=== PATIENT | male | born 1945 | race Caucasian/White ===

== ENCOUNTER → 2018-01-15 | Outpatient (CLI) | payer OTHER | LOC: FIMAGING 09:45 | PROVIDERS: ATTEND Orthopaedic Surgery | DX: M17.11 Unilateral primary osteoarthritis, right knee (principal) ==

== ENCOUNTER 2018-02-04 10:10 | Inpatient (IN) | payer OTHER ==
--- NOTE | 2018-02-04 06:21 | PDHPUP ---
History & Physical Update H&P update statement: This history and physical update is based on an assessment of the patient which was completed after admission or registration (within 24 hours), but prior to the surgery/procedure. H&P update: H&P reviewed & patient examined, no change in patient's condition since H&P completed
[~2018-02-04 10:10] MED LIST: MIDAZOLAM 2 MG/2 ML VIAL IVP ONE; ROPIVACAINE 0.2% 80 MG, EPINEPHrine 0.2 MG, KETOROLAC TROMETHAMINE 30 MG in SYRINGE 0 ML IU ONE; TRANEXAMIC ACID 3,000 MG in NS (SYRINGE) 50 ML IRR ONE; TRANEXAMIC ACID 3,000 MG/50 ML BAG IRR ONE
[2018-02-04] MEDS ORDERED: FAMOTIDINE 20 MG TAB PO ONE (10:37)
[2018-02-04] MEDS ORDERED: ACETAMINOPHEN 325 MG TAB PO ONE (10:37)
[2018-02-04] MEDS ORDERED: DEXAMETHASONE 4 MG/ML VIAL IVP ONE (10:37)
[2018-02-04] MEDS ORDERED: ceFAZolin 2 GM/DEXTROSE 100 ML IV ONE (10:37)
[2018-02-04] MEDS ORDERED: LR 1,000 ML IV ONE (10:39)
[2018-02-04] MEDS ORDERED: MIDAZOLAM 2 MG/2 ML VIAL IVP ONE (11:58)
--- NOTE | 2018-02-04 12:00 | PDANEPAE ---
ANE History of Present Illness djd knee s/f R TKA ANE Past Medical History - Cardiovascular History Hx Hypertension: No Hx Arrhythmias: No Hx Chest Pain: No Hx Coronary Artery / Peripheral Vascular Disease: No Hx CHF / Valvular Disease: No Hx Palpitations: No Cardiovascular History Comment: high chol - Pulmonary History Hx COPD: No Hx Asthma/Reactive Airway Disease: No Hx Recent Upper Respiratory Infection: No Hx Oxygen in Use at Home: No Hx Sleep Apnea: No Sleep Apnea Screening Result - Last Documented: Negative - Neurologic History Hx Cerebrovascular Accident: No Hx Seizures: No Hx Dementia: No - Endocrine History Hx Diabetes: No Endocrine History Comment: hx of hyperthyroid- used medications and hasn't had any difficulties in 5-6 years - Renal History Hx Renal Disorders: No - Liver History Hx Hepatic Disorders: No - Neurological & Psychiatric Hx Hx Neurological and Psychiatric Disorders: No - Cancer History Hx Cancer: No - Congenital Disorder History Hx Congenital Disorders: No - GI History Hx Gastrointestinal Disorders: Yes Gastrointestinal History Comment: hx of acid reflux- no issues currently - Other Health History Other Health History: wears reading glasses. wears bilateral hearing aides. 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 cataract surgery- bilaterally. lymph nodes removed ANE Review of Systems Review of Systems: - Exercise capacity METS (RN): 4 METS ANE Patient History - Allergies Allergies/Adverse Reactions: No Known Allergies Allergy (Verified 01/09/18 16:14) - Home Medications Home medications: home medication list seen and reviewed Home Medications: Aspirin [Aspirin 81mg (*)] 81 mg PO DAILY 01/09/18 [Last Taken 1 Week Ago ~01/28] Cholecalciferol Vit D3 [Vitamin D3 (*)] 1,000 units PO DAILY 01/09/18 [Last Taken 2 Weeks Ago ~01/21/18] Fluticasone Nasal [Flonase Nasal [place] (RX)] 2 sprays NASAL DAILY 01/09/18 [ Last Taken 01/25/18] Ibuprofen [Motrin (*)] 200 mg PO DAILY PRN 01/09/18 [Last Taken 1 Week Ago ~] Ketoconazole 2% [Nizoral 2% Cream (*)] 1 ying TP BID 01/09/18 [Last Taken ] [place]-3 Fatty Acids [Fish Oil 1000 mg (*)] 1,000 mg PO DAILY 01/09/18 [Last Taken 2 Weeks Ago ~01/21/18] Simvastatin [Zocor] 20 mg PO DAILY18 01/09/18 [Last Taken 02/03/18] Triamcinolone 0.5% [Triamcinolone 0.5% Cream (*)] 1 ying TP Q3D 01/09/18 [Last Taken 2 Weeks Ago ~01/21/18] - NPO status NPO Status: no food or drink >8 hours NPO Since - Liquids (Date): 02/04/18 NPO Since - Liquids (Time): 08:45 NPO Since - Solids (Date): 02/03/18 NPO Since - Solids (Time): 17:30 - Smoking Hx Smoking Status: Never smoked - Alcohol Use Alcohol Use: Occasionally - Family Anes Hx Family Hx Anesthesia Complications: none ANE Labs/Vital Signs - Vital Signs Blood Pressure: 151/68 Heart Rate: 64 Respiratory Rate: 18 O2 Sat (%): 97 Height: 175.26 cm Weight: 87.09 kg ANE Physical Exam - Airway Neck exam: FROM Mallampati Score: Class 2 Mouth exam: normal dental/mouth exam - Pulmonary Pulmonary: no respiratory distress - Cardiovascular Cardiovascular: regular rate and rhythym - ASA Status ASA Status: II ANE Anesthesia Plan Anesthesia Plan: MAC, spinal (spinal with sedation) Regional Anesthesia: adductor canal FNB
[2018-02-04] MEDS ORDERED: PROPOFOL/EMULSION 500 MG/50 ML BOTTLE IV ONE (12:10)
[2018-02-04] MEDS ORDERED: fentaNYL 100 MCG/2 ML INJ ONE (12:10)
[2018-02-04] MEDS ORDERED: METOCLOPRAMIDE 10 MG/2 ML VIAL IVP PRN (12:46)
[2018-02-04] MEDS ORDERED: TEMAZEPAM 15 MG CAP PO PRN (12:46)
[2018-02-04] MEDS ORDERED: MAGNESIUM HYDROXIDE 30 ML UDCUP PO PRN (12:46)
[2018-02-04] MEDS ORDERED: POLYETHYLENE GLYCOL 3350 17 GM PKT PO PRN (12:46)
[2018-02-04] MEDS ORDERED: BISACODYL 10 MG SUPP PR PRN (12:46)
[2018-02-04] MEDS ORDERED: LACTULOSE 20 GM/30 ML UDCUP PO PRN (12:46)
[2018-02-04] MEDS ORDERED: DIPHENOXYLATE/ATROPINE LOMOTIL 1 TAB PO PRN (12:46)
[2018-02-04] MEDS ORDERED: ONDANSETRON 4 MG/2 ML VIAL IVP PRN (12:46)
[2018-02-04] MEDS ORDERED: PROMETHAZINE HCL 25 MG SUPPR PR PRN (12:46)
[2018-02-04] MEDS ORDERED: PROMETHAZINE HCL 25 MG/ML INJ IVP PRN (12:46)
[2018-02-04] MEDS ORDERED: CYCLOBENZAPRINE 10 MG TAB PO PRN (12:46)
[2018-02-04] MEDS ORDERED: ONDANSETRON DISINTEGRATING 4 MG TAB PO PRN (12:46)
[2018-02-04] MEDS ORDERED: diphenhydrAMINE 25 MG CAP PO PRN (12:46)
[2018-02-04] MEDS ORDERED: LR 1,000 ML IV SCH (13:00)
[2018-02-04] MEDS ORDERED: PROPOFOL 200 MG/20 ML VIAL ONE (13:07)
--- NOTE | 2018-02-04 13:32 | PDMN ---
Medical Necessity Medical necessity: Pt meets IP criteria as of 02/04/2018 per PA for R KATINA; est los > 2 mn due to advanced age and pain control.
--- NOTE | 2018-02-04 13:50 | POSTOPPROG ---
Post Op Note Date of Operation: 02/04/18 Surgeon: Caden Dee Field Project Manager: jak dee PA-C Anesthesiologist: dr. hernández Anesthesia: Spinal, Other (Specify) (adductor canal block) Pre-op Diagnosis: right knee OA Post-op Diagnosis: same Indication: right knee pain Procedure: R TKA robot assisted Findings: severe knee OA Inf/Abcess present in the surg proc area at time of surgery?: No EBL: 50-100
[2018-02-04] MEDS: ACETAMINOPHEN 325 MG TAB PO SCH ×2 (17:31→23:43)
[2018-02-04] MEDS: oxyCODONE IR 5 MG TAB PO PRN (17:33)
[2018-02-04] MEDS ORDERED: ATORVASTATIN CALCIUM 10 MG TAB PO SCH (18:00)
[2018-02-04] MEDS: ceFAZolin 2 GM/DEXTROSE 100 ML IV SCH (20:01)
[2018-02-04] MEDS: ASPIRIN 81 MG CHEWABLE TAB PO SCH (21:07)
[2018-02-04] MEDS: FAMOTIDINE 20 MG TAB PO SCH (21:07)
[2018-02-04] MEDS: SENNOSIDES/DOCUSATE SODIUM TAB PO SCH (21:07)
[2018-02-05] MEDS: ceFAZolin 2 GM/DEXTROSE 100 ML IV SCH (04:46)
[2018-02-05] MEDS: ACETAMINOPHEN 325 MG TAB PO SCH (05:02)
[2018-02-05] MEDS: oxyCODONE IR 5 MG TAB PO PRN (08:12)
[2018-02-05] MEDS: ASPIRIN 81 MG CHEWABLE TAB PO SCH (08:13)
[2018-02-05] MEDS: SENNOSIDES/DOCUSATE SODIUM TAB PO SCH (08:13)
[2018-02-05] MEDS: FAMOTIDINE 20 MG TAB PO SCH (08:13)
--- NOTE | 2018-02-05 08:21 | GOP ---
DATE OF OPERATION: 02/04/2018 SURGEON: Gisselle Hernadez MD REHABILITATION SERVICES MANAGER: SHREYAS Acevedo. ANESTHESIA: Spinal. PREOPERATIVE DIAGNOSIS: Right knee osteoarthritis. POSTOPERATIVE DIAGNOSIS: Right knee osteoarthritis. PROCEDURE PERFORMED: Right total knee arthroplasty with computer navigation, robotic assist. FINDINGS: ESTIMATED BLOOD LOSS: 30 cc. INDICATIONS: The patient is a 72-year-old male with severe and progressive pain and deformity of the right knee unresponsive to conservative care. The risks and benefits of surgical intervention were explained in detail. DESCRIPTION OF PROCEDURE: The patient was brought to the operative room and placed on the table in t he supine position. Spinal anesthesia was induced without difficulty. A pneumatic tourniquet was appl ied about the right proximal thigh, and the leg was prepped and draped in a sterile fashion. The leg elizabeth was applied. After exsanguination by elevation the tourniquet was inflated to 250 mmHg. Incision was made anterior medial from the tibial tuberosity to a point 2 cm proximal to the superior pole of the patella. Medial parapatellar arthrotomy was carried out from the superior pole of the pa tella and posteriorly in line with the fibers of the Type II VMO. The medial collateral ligament was elevated and the infrapatellar fat pad was resected. The patella was everted and the articular surface was excised. A 35 mm patellar button was placed. Attention was turned first to the distal aspect of the femur. After exposure of the femur, 2 half pi ns were placed for fixation of the femoral array. In a similar fashion, 2 pins were placed anteromed ial on the tibia for fixation of the tibial array. External land marking and registration of the hip center was performed without difficulty. Internal femoral and tibial registration was carried out w ithout difficulty and the femoral and tibial checkpoints were placed and verified for accuracy. Attention was turned to the femur. The foot print for the size 5 femoral component was cut with the saw using the [employer] robotic system and verified for accuracy against the CT based plan. In a similar f ashion, the saw was used to cut the footprint for the size 6 tibial component using the [employer] system an d verified for accuracy against the CT based plan. The tibial articular surface was excised without d ifficulty, followed by the intercondylar box cut. The knee was extended and the remnants of the medial and lateral meniscus were excised. The posterior capsule was injected with ropivacaine, epinephrine and Toradol. A size 6 tibial tray was positioned . Trial reduction was then carried out. There was excellent range of motion, alignment, and stability using the 6 x 9 mm polyethylene. All trials were then removed. The joint was thoroughly irrigated and carefully dried. The press-fit c omponents were implanted. The permanent 6 x 9 mm polyethylene was placed without difficulty. The tourniquet was deflated and all bleeders were coagulated. The wound was thoroughly irrigated and closed using interrupted sutures of 2-0 Vicryl for the joint capsule. The subcu was closed with 3-0 V icryl and the skin with 4-0 Monocryl. Dermabond and Steri-Strips were applied followed by a compress albertina dressing. The patient was then moved from the operating room to the recovery room in good conditi on, having tolerated the procedure well. PATHOLOGY: Severe medial patellofemoral osteoarthritis. /[id number]/MODL
[2018-02-05 08:26] VITALS: BP 146/88
[2018-02-05] MEDS ORDERED: KETOCONAZOLE 2% 15 GM CREAM TP SCH (09:00)
[2018-02-05] MEDS ORDERED: FLUTICASONE NASAL 120 SPRAYS/16 GM MDI NS SCH (09:00)
--- NOTE | 2018-02-05 09:58 | ASMTLACE ---
LACE Length of stay for Answers: Less than 1 day current admission Acuity / Level of Answers: Yes Care: Did the patient have an inpatient admission? Comorbidities - select Answers: Opioid dependence all that apply / Chronic pain # of Emergency department Answers: 0 visits in the last 6 months Score: 7 Date Signed: 02/05/2018 09:57 AM Electronically Signed By:Dasia Villanueva RN
--- NOTE | 2018-02-05 10:01 | ASMTDCNOTE ---
Case Management Discharge Discharge Order Complete? Answers: Yes Discharge Comments Notes: 02/05/2018 Case Management Note There are no identified case management d/c needs. Pt to discharge home with follow up as directed. Date Signed: 02/05/2018 10:00 AM Electronically Signed By:Dasia Villanueva RN
--- NOTE | 2018-02-05 11:16 | SOAPPROG ---
SOAP Progress Note Assessment/Plan: Assessment: Patient is doing well POD 1 s/p R TKA Pain management: pain is well controlled on oral pain meds. VTE ppx: recommend aspirin 81 mg BID for 4 weeks, cont CAMILLE and SCDs D/c planning: Patient has done better than anticipated. Pain has been minimal and patient has tolerated narcotic pain meds well. Patient would prefer to go home today. Ok for discharge to home if patient is released from PT Plan: 02/05/18 11:15 Subjective: patient is doing well today, denies SOB, chest pain and N/V Objective: Vital Signs Temp Pulse Resp BP Pulse Ox 36.3 C 95 13 146/88 H 95 02/05/18 08:00 02/05/18 08:00 02/05/18 08:00 02/05/18 08:00 02/05/18 08:00 Laboratory Results 02/05/18 05:08 02/04/18 02/05/18 02/06/18 05:59 05:59 05:59 Intake Total 3550 400 Output Total 1210 300 Balance 2340 100 RLE: incision dressing is clean and dry, NVI, +pf/df ICD10 Worksheet Patient Problems: Problems Problem Status Onset Primary localized osteoarthritis of right knee Acute
== END 2018-02-05 10:24 | disposition home or self-care (01) | DRG 470 ==
LOC: F3N 10:10
PROVIDERS: ADMIT Orthopaedic Surgery; ATTEND Orthopaedic Surgery
DX: M17.11 Unilateral primary osteoarthritis, right knee (principal); E78.00 Pure hypercholesterolemia, unspecified; E05.90 Thyrotoxicosis, unspecified without thyrotoxic crisis or storm
CPT/HCPCS: 97110-GP; 97116-GP; 97161-GP; G8978-GP-CI; G8978-GP-CK; G8979-GP-CI; G8980-GP-CI; J0171; J0690; J1100; J1885; J2250; J2704; J2795; J3010

== ENCOUNTER → 2018-05-12 | Outpatient (CLI) | payer OTHER | LOC: FIMAGING 10:42 | PROVIDERS: ATTEND Orthopaedic Surgery | DX: M17.12 Unilateral primary osteoarthritis, left knee (principal) ==

== ENCOUNTER 2018-05-27 06:59 | Inpatient (IN) | payer OTHER ==
[2018-05-27] MEDS ORDERED: DEXAMETHASONE 4 MG/ML VIAL IVP ONE (07:19)
[2018-05-27] MEDS ORDERED: ceFAZolin 2 GM/DEXTROSE 100 ML IV ONE (07:19)
[2018-05-27] MEDS ORDERED: FAMOTIDINE 20 MG TAB PO ONE (07:19)
[2018-05-27] MEDS ORDERED: ACETAMINOPHEN 325 MG TAB PO ONE (07:19)
[2018-05-27] MEDS ORDERED: LR 1,000 ML IV ONE (07:20)
[2018-05-27] MEDS ORDERED: TRANEXAMIC ACID 3,000 MG/50 ML BAG IRR ONE (07:47)
[2018-05-27] MEDS ORDERED: PROPOFOL/EMULSION 500 MG/50 ML BOTTLE IV ONE ×2 (07:52)
[2018-05-27] MEDS ORDERED: ROPIVACAINE HCL 150 MG/30 ML INJ ONE (07:52)
[2018-05-27] MEDS ORDERED: PROPOFOL 200 MG/20 ML VIAL ONE (07:52)
[2018-05-27] MEDS ORDERED: BUPIVACAINE/DEXTROSE 7.5MG/ML 2 ML SPINAL AMP SP ONE (07:52)
[2018-05-27] MEDS ORDERED: LIDOCAINE 2% 5 ML SDV ONE (07:52)
[2018-05-27] MEDS ORDERED: TRANEXAMIC ACID 3,000 MG in NS (SYRINGE) 50 ML IRR ONE (08:00)
[2018-05-27] MEDS ORDERED: ROPIVACAINE 0.2% 80 MG, EPINEPHrine 0.2 MG, KETOROLAC TROMETHAMINE 30 MG in SYRINGE 0 ML IU ONE (08:00)
[2018-05-27] MEDS ORDERED: MIDAZOLAM 2 MG/2 ML VIAL ONE (09:06)
[2018-05-27] MEDS ORDERED: MIDAZOLAM 2 MG/2 ML VIAL IVP ONE (09:07)
--- NOTE | 2018-05-27 09:08 | PDANEPAE ---
ANE Past Medical History - Cardiovascular History Hx Hypertension: No Hx Arrhythmias: No Hx Chest Pain: No Hx Coronary Artery / Peripheral Vascular Disease: No Hx CHF / Valvular Disease: No Hx Palpitations: No Cardiovascular History Comment: high chol - Pulmonary History Hx COPD: No Hx Asthma/Reactive Airway Disease: No Hx Recent Upper Respiratory Infection: No Hx Oxygen in Use at Home: No Hx Sleep Apnea: No Sleep Apnea Screening Result - Last Documented: Negative - Neurologic History Hx Cerebrovascular Accident: No Hx Seizures: No Hx Dementia: No - Endocrine History Hx Diabetes: No Endocrine History Comment: hx of hyperthyroid- used medications and hasn't had any difficulties in 5-6 years - Renal History Hx Renal Disorders: No - Liver History Hx Hepatic Disorders: No - Neurological & Psychiatric Hx Hx Neurological and Psychiatric Disorders: No - Cancer History Hx Cancer: No - Congenital Disorder History Hx Congenital Disorders: No - GI History Hx Gastrointestinal Disorders: Yes Gastrointestinal History Comment: hx of acid reflux- no issues currently - Other Health History Other Health History: wears reading glasses. wears bilateral hearing aides. 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 cataract surgery- bilaterally. lymph nodes removed ANE Review of Systems Review of Systems: - Exercise capacity METS (RN): 4 METS ANE Patient History - Allergies Allergies/Adverse Reactions: No Known Allergies Allergy (Verified 05/07/18 11:13) - Home Medications Home Medications: Cholecalciferol Vit D3 [Vitamin D3 (*)] 2,000 units PO DAILY 01/09/18 [Last Taken 05/13/18] Fluticasone Nasal [Flonase Nasal [place]] 2 sprays NASAL DAILY 01/09/18 [Last Taken 05/25/18] [place]-3 Fatty Acids [Fish Oil 1000 mg (*)] 1,000 mg PO DAILY 01/09/18 [Last Taken 05/13/18] Simvastatin [Zocor] 20 mg PO DAILY18 01/09/18 [Last Taken 05/26/18 18:00] Aspirin [Aspirin 81mg (*)] 81 mg PO DAILY 05/06/18 [Last Taken 05/20/18] Ibuprofen [Motrin (*)] 200 mg PO TID PRN 05/06/18 [Last Taken 05/20/18] - NPO status NPO Since - Liquids (Date): 05/27/18 NPO Since - Liquids (Time): 06:00 NPO Since - Solids (Date): 05/26/18 NPO Since - Solids (Time): 18:15 - Smoking Hx Smoking Status: Never smoked - Family Anes Hx Family Hx Anesthesia Complications: none ANE Labs/Vital Signs - Vital Signs Blood Pressure: 167/102 Heart Rate: 65 Respiratory Rate: 11 O2 Sat (%): 97 Height: 175.26 cm Weight: 86.183 kg ANE Physical Exam - Airway Neck exam: FROM Mallampati Score: Class 2 Mouth exam: normal dental/mouth exam - Pulmonary Pulmonary: no respiratory distress, no rales or rhonchi, clear to auscultation - Cardiovascular Cardiovascular: regular rate and rhythym, no murmur, rub, or gallop - ASA Status ASA Status: II ANE Anesthesia Plan Anesthesia Plan: spinal Regional Anesthesia: single shot NB
--- NOTE | 2018-05-27 09:08 | POSTANESTH ---
Post Anesthetic Evaluation Cardiovascular Status: Normal, Stable Respiratory Status: Normal, Stable Level of Consciousness/Mental Status: Can Participate in Eval Pain Control: Adequate, Prn Tx Ordered Nausea/Vomiting Control: Adequate, Prn Tx Ordered Complications Possibly Related to Anesthesia: None Noted
[2018-05-27] MEDS ORDERED: PHENYLEPHRINE HCL 100 MCG/ML SYR IVP PRN (09:37)
[2018-05-27] MEDS ORDERED: METOCLOPRAMIDE 10 MG/2 ML VIAL IVP PRN ×2 (09:37→10:53)
[2018-05-27] MEDS ORDERED: NS 500 ML IV PRN (09:37)
[2018-05-27] MEDS ORDERED: HYDROmorphONE/DILAUDID 2 MG/ML INJ IVP PRN (09:37)
[2018-05-27] MEDS ORDERED: oxyCODONE IR 5 MG TAB PO PRN (09:37)
[2018-05-27] MEDS ORDERED: ONDANSETRON 4 MG/2 ML VIAL IVP PRN ×2 (09:37→10:53)
[2018-05-27] MEDS ORDERED: PROMETHAZINE HCL 25 MG/ML INJ IVP PRN ×2 (09:37→10:53)
[2018-05-27] MEDS ORDERED: LR 500 ML IV PRN (09:37)
[2018-05-27] MEDS ORDERED: NALOXONE HCL 0.4 MG/ML INJ IVP PRN (09:37)
[2018-05-27] MEDS ORDERED: fentaNYL 100 MCG/2 ML INJ IVP PRN (09:37)
[2018-05-27] MEDS ORDERED: MEPERIDINE 25 MG/0.5 ML AMP IVP PRN (09:37)
[2018-05-27] MEDS ORDERED: PHENYLEPHRINE HCL 100 MCG/ML SYR ONE (10:21)
--- NOTE | 2018-05-27 10:52 | POSTOPPROG ---
Post Op Note Date of Operation: 05/27/18 Surgeon: Caden Dee Daycare Provider: jak dee PA-C and Keeley Pruett PA-C Anesthesiologist: dr. milton Anesthesia: Spinal, Other (Specify) (adductor canal block) Pre-op Diagnosis: left knee OA Post-op Diagnosis: same Indication: left knee pain Procedure: L TKA robot assisted Findings: severe knee OA Inf/Abcess present in the surg proc area at time of surgery?: No EBL: 50-100
[2018-05-27] MEDS ORDERED: ONDANSETRON DISINTEGRATING 4 MG TAB PO PRN (10:53)
[2018-05-27] MEDS ORDERED: MAGNESIUM HYDROXIDE 30 ML UDCUP PO PRN (10:53)
[2018-05-27] MEDS ORDERED: LACTULOSE 20 GM/30 ML UDCUP PO PRN (10:53)
[2018-05-27] MEDS ORDERED: BISACODYL 10 MG SUPP PR PRN (10:53)
[2018-05-27] MEDS ORDERED: PROMETHAZINE HCL 25 MG SUPPR PR PRN (10:53)
[2018-05-27] MEDS ORDERED: POLYETHYLENE GLYCOL 3350 17 GM PKT PO PRN (10:53)
[2018-05-27] MEDS ORDERED: TEMAZEPAM 15 MG CAP PO PRN (10:53)
[2018-05-27] MEDS ORDERED: DIPHENOXYLATE/ATROPINE LOMOTIL 1 TAB PO PRN (10:53)
[2018-05-27] MEDS ORDERED: diphenhydrAMINE 25 MG CAP PO PRN (10:53)
[2018-05-27] MEDS ORDERED: LR 1,000 ML IV SCH (11:00)
--- NOTE | 2018-05-27 16:01 | PDMN ---
Medical Necessity Medical necessity: Pt meets IP criteria per PA; est los >2 mn s/p L TKA (cpt 49509); recommending IP due to hx CAD, HTN, advanced age & pain control; per order 05/27/18
[2018-05-27] MEDS: ACETAMINOPHEN 325 MG TAB PO SCH ×2 (17:07→23:39)
[2018-05-27] MEDS: ceFAZolin 2 GM/DEXTROSE 100 ML IV SCH (17:08)
[2018-05-27] MEDS ORDERED: ATORVASTATIN CALCIUM 10 MG TAB PO SCH (18:00)
[2018-05-27] MEDS: CYCLOBENZAPRINE 10 MG TAB PO PRN (18:17)
[2018-05-27] MEDS: FAMOTIDINE 20 MG TAB PO SCH (20:58)
[2018-05-27] MEDS: ASPIRIN 81 MG CHEWABLE TAB PO SCH (20:58)
[2018-05-27] MEDS: SENNOSIDES/DOCUSATE SODIUM TAB PO SCH (20:58)
[2018-05-27] MEDS: oxyCODONE IR 5 MG TAB PO PRN (20:59)
[2018-05-27] MEDS: FLUTICASONE NASAL 120 SPRAYS/16 GM MDI EACHNARE SCH (21:26)
[2018-05-28] MEDS: ceFAZolin 2 GM/DEXTROSE 100 ML IV SCH (01:05)
[2018-05-28] MEDS: ACETAMINOPHEN 325 MG TAB PO SCH (05:10)
[2018-05-28] MEDS: CYCLOBENZAPRINE 10 MG TAB PO PRN (05:10)
[2018-05-28 07:44] VITALS: BP 151/91
[2018-05-28] MEDS: oxyCODONE IR 5 MG TAB PO PRN (08:37)
[2018-05-28] MEDS: SENNOSIDES/DOCUSATE SODIUM TAB PO SCH (08:37)
[2018-05-28] MEDS: ASPIRIN 81 MG CHEWABLE TAB PO SCH (08:37)
[2018-05-28] MEDS: FAMOTIDINE 20 MG TAB PO SCH (08:37)
[2018-05-28] MEDS: FLUTICASONE NASAL 120 SPRAYS/16 GM MDI EACHNARE SCH (08:56)
--- NOTE | 2018-05-28 09:21 | SOAPPROG ---
SOAP Progress Note Assessment/Plan: Assessment: Patient is doing well POD 1 s/p L TKA Pain management: pain is well controlled on oral pain meds. Does not appear to have adductor canal block still in effect. VTE ppx: recommend aspirin 81 mg BID for 4 weeks, cont CAMILLE and SCDs Anemia: level is expected initially postop. Asymptomatic. Continue to monitor postop urinary retention: straight cath'd yesterday, resolved today. D/c planning: Patient has done better than anticipated and would like to be discharged to home today. Patient must be released from PT before discharge to home. Plan: 05/28/18 09:19 Subjective: patient is doing well today, denies SOB ,chest pain and N/V. mod pain. Objective: Vital Signs Temp Pulse Resp BP Pulse Ox 36.7 C 91 18 151/91 H 95 05/28/18 07:43 05/28/18 07:43 05/28/18 07:43 05/28/18 07:43 05/28/18 07:43 Laboratory Results 05/28/18 05:30 05/27/18 05/28/18 05/29/18 05:59 05:59 05:59 Intake Total 1475 600 Output Total 2505 Balance -1030 600 LLE: incision dressing is clean and dry, NVI, +pf/df ICD10 Worksheet Patient Problems: Problems Problem Status Onset Primary localized osteoarthritis of left knee Acute Primary localized osteoarthritis of right knee Acute
--- NOTE | 2018-05-28 11:29 | GDS ---
[f rep st] DISCHARGE SUMMARY ADMISSION DIAGNOSIS: Left knee osteoarthritis. DISCHARGE DIAGNOSIS: Left knee osteoarthritis. PROCEDURE: Left total knee arthroplasty, robotic assisted. VTE PROPHYLAXIS: Recommend aspirin 81 mg daily for 4 weeks. BRIEF DESCRIPTION OF HOSPITAL STAY: Patient was admitted for an elective joint arthroplasty. The pa aline tolerated the procedure well and has passed physical therapy. The patient was given appropriat e antibiotic prophylaxis and venous thromboembolism prophylaxis. The patient's pain was well control led on oral pain medication, patient was holding down food, and had urinated. Decision was made to d ischarge the patient. The patient was given post-operative prescriptions pre-operatively. PLAN: Follow up as scheduled with Dr. Hernadez's office June 18 at 9:30 a.m. /[id number]/MODL
--- NOTE | 2018-05-28 18:35 | GOP ---
[f rep st] OPERATIVE REPORT DATE OF OPERATION: 05/28/2018 SURGEON: Gisselle Hernadez MD FLATWORK FEEDER: 1. Fanta Hernadez PA-C. 2. Keeley Pruett PA-C. ANESTHESIA: Spinal. PREOPERATIVE DIAGNOSIS: Left knee osteoarthritis. POSTOPERATIVE DIAGNOSIS: Left knee osteoarthritis. PROCEDURE PERFORMED: Left total knee arthroplasty with computer navigation, robotic assist. FINDINGS: Severe tricompartmental osteoarthritis. ESTIMATED BLOOD LOSS: 30 cc. INDICATIONS: The patient is a 72-year-old male with severe and progressive pain and deformity of the left knee unresponsive to conservative care. The risks and benefits of surgical intervention were e xplained in detail. DESCRIPTION OF PROCEDURE: The patient was brought to the operative room and placed on the table in t he supine position. Spinal anesthesia was induced without difficulty. A pneumatic tourniquet was appl ied about the left proximal thigh, and the leg was prepped and draped in a sterile fashion. The leg h older was applied. After exsanguination by elevation the tourniquet was inflated to 250 mmHg. Incision was made anterior medial from the tibial tuberosity to a point 2 cm proximal to the superior pole of the patella. Medial parapatellar arthrotomy was carried out from the superior pole of the pa tella and posteriorly in line with the fibers of the Type II VMO. The medial collateral ligament was elevated and the infrapatellar fat pad was resected. The patella was everted and the articular surface was excised. A 38 mm patellar button was placed. Attention was turned first to the distal aspect of the femur. After exposure of the femur, 2 half pi ns were placed for fixation of the femoral array. In a similar fashion, 2 pins were placed anteromed ial on the tibia for fixation of the tibial array. External land marking and registration of the hip center was performed without difficulty. Internal femoral and tibial registration was carried out w ithout difficulty and the femoral and tibial checkpoints were placed and verified for accuracy. Attention was turned to the femur. The foot print for the size 5 femoral component was cut with the saw using the [employer] robotic system and verified for accuracy against the CT based plan. In a similar f ashion, the saw was used to cut the footprint for the size 6 tibial component using the [employer] system an d verified for accuracy against the CT based plan. The tibial articular surface was excised without d ifficulty, followed by the intercondylar box cut. The knee was extended and the remnants of the medial and lateral meniscus were excised. The posterior capsule was injected with ropivacaine, epinephrine and Toradol. A size 6 tibial tray was positioned . Trial reduction was then carried out. There was excellent range of motion, alignment, and stability using the 6 x 9 mm polyethylene. All trials were then removed. The joint was thoroughly irrigated and carefully dried. The press fit c omponents were implanted. The permanent 6 x 9 mm polyethylene was placed without difficulty. The tourniquet was deflated and all bleeders were coagulated. The wound was thoroughly irrigated and closed using interrupted sutures of 2-0 Vicryl for the joint capsule. The subcu was closed with 3-0 V icryl and the skin with 4-0 Monocryl. Dermabond and Steri-Strips were applied followed by a compress albertina dressing. The patient was then moved from the operating room to the recovery room in good conditi on, having tolerated the procedure well. /[id number]/MODL
== END 2018-05-28 10:02 | disposition home or self-care (01) | DRG 470 ==
LOC: F3N 06:59 → FOB 13:19
PROVIDERS: ADMIT Orthopaedic Surgery; ATTEND Orthopaedic Surgery
PROC: 0SRD0JZ Replacement of Left Knee Joint with Synthetic Substitute, Open Approach (ICD-10-PCS; principal; 2018-05-28)
PROC: 8E0Y0CZ Robotic Assisted Procedure of Lower Extremity, Open Approach (ICD-10-PCS; principal; 2018-05-28)
DX: M17.12 Unilateral primary osteoarthritis, left knee (principal); R33.9 Retention of urine, unspecified; M72.0 Palmar fascial fibromatosis [Dupuytren]; E78.00 Pure hypercholesterolemia, unspecified; K21.9 Gastro-esophageal reflux disease without esophagitis; Z96.651 Presence of right artificial knee joint
CPT/HCPCS: 97110-GP; 97116-GP; 97161-GP; J0171; J0690; J1100; J1885; J2250; J2370; J2704; J2795